=== PATIENT | female | born 1935 | race Caucasian/White ===

== ENCOUNTER 2020-05-23 13:00 | Inpatient (IN) | payer MEDICARE ==
[~2020-05-23] VITALS: Ht 167.6 cm; Wt 70.8 kg
[2020-05-25] MEDS ORDERED: ROSU10TA22 PO (16:37)
[2020-05-25] MEDS ORDERED: DENO60DI SQ (16:37)
[2020-05-25] MEDS ORDERED: AEC81 PO (16:37)
[2020-05-25] MEDS ORDERED: CLON0.3T PO (16:37)
[2020-05-25] MEDS ORDERED: CARB100C9 PO (16:37)
[2020-05-25] MEDS ORDERED: LABE200T5 PO (16:37)
[2020-05-25] MEDS ORDERED: DOCU-133 PO (16:39)
[2020-05-25] MEDS ORDERED: LINA290C PO (16:39)
[2020-05-25] MEDS ORDERED: CELE200C PO (16:39)
[2020-05-25] MEDS ORDERED: SENN8.6T32 PO (16:39)
[2020-05-26] VITALS (27 sets, daily range): BP systolic 119–188; BP diastolic 63–104
[2020-05-26] MEDS ORDERED: VANCOMYCIN HCL 1 GM VIAL ONE (06:58)
[2020-05-26] MEDS ORDERED: THROMBIN-JMI 20000 UNIT KIT TP ONE (06:59)
[2020-05-26 07:00] LABS: BASOPHILS % (AUTO) 0.5 % (0.0-5.0); EOSINOPHILS % (AUTO) 3.7 % (0.0-8.0); HEMATOCRIT 35.3 % (36-48); LYMPHOCYTES % (AUTO) 22.5 % (21.0-51.0); MEAN CORPUSCULAR HEMOGLOBIN 31.8 pg (27.0-33.0); MEAN CORPUSCULAR HGB CONC 34.6 g/dL (32.0-36.0); MEAN CORPUSCULAR VOLUME 91.9 fL (79-99); MONOCYTES % (AUTO) 13.3 % (3.0-13.0); NEUTROPHILS % (AUTO) 59.5 % (40.0-77.0); PLATELET COUNT (AUTO) 136 K/uL (130-400); RED BLOOD CELL COUNT(AUTO) 3.84 MIL/uL (4.00-5.50); RED CELL DISTRIBUTION WIDTH 11.5 % (11.0-15.5); WHITE BLOOD COUNT (AUTO) 4.1 K/uL (4.8-10.8)
[2020-05-26] MEDS ORDERED: LACTATED RINGERS 1000ML 1,000 ML IV ONE (07:08)
[2020-05-26 07:11] LABS: CREATININE 0.8 mg/dL (0.5-1.5); POTASSIUM 4.2 mmol/L (3.5-5.1)
[2020-05-26 07:16] LABS: INR 0.95 (0.85-1.15); PARTIAL THROMBOPLASTIN TIME 23.4 SEC (26.3-35.5); PROTHROMBIN TIME 10.3 SEC (9.6-11.6)
[2020-05-26] MEDS ORDERED: SUCCINYLCHOLINE CHLORIDE 20 MG/ML 10 ML VIAL ONE (07:29)
[2020-05-26] MEDS ORDERED: LIDOCAINE PF 2% 5ML ABBOJECT ONE (07:29)
[2020-05-26] MEDS ORDERED: GLYCOPYRROLATE 1 MG/5 ML SYRINGE ONE (07:31)
[2020-05-26] MEDS ORDERED: NEOSTIGMINE 5MG/5ML SYR IV ONE (07:31)
[2020-05-26] MEDS ORDERED: MIDAZOLAM HCL 1 MG/ML 2ML VIAL ONE (07:31)
[2020-05-26] MEDS ORDERED: DEXAMETHASONE SOD PHOSPHATE 10MG/ML 1ML VIAL ONE ×2 (07:31→08:21)
[2020-05-26] MEDS ORDERED: PROPOFOL 10 MG/ML 20ML VIAL IV ONE (07:31)
[2020-05-26] MEDS ORDERED: ONDANSETRON HCL 4 MG/2 ML VIAL ONE (07:31)
[2020-05-26] MEDS ORDERED: ROCURONIUM 10MG/1ML SYR 10 MG/ML ML ONE (07:31)
[2020-05-26] MEDS ORDERED: FENTANYL CITRATE PF 50 MCG/1 ML 2ML VIAL ONE (07:31)
[2020-05-26] MEDS ORDERED: CEFAZOLIN SODIUM 1 GM VIAL ONE ×2 (08:18)
[2020-05-26] MEDS ORDERED: EPHEDRINE SULFATE 50 MG/ML AMPULE ONE (08:27)
[2020-05-26] MEDS ORDERED: HETASTARCH IN 0.9 % NACL 500 ML IV ONE (08:42)
[2020-05-26] MEDS ORDERED: PHENYLEPHRINE HCL 10 MG/ML 1ML VIAL IV ONE (08:43)
[2020-05-26] MEDS ORDERED: KETOROLAC TROMETHAMINE 30MG/ML ONE (09:46)
[2020-05-26] MEDS ORDERED: MEPERIDINE-PF 25 MG/ML SYG ONE ×5 (10:01→11:43)
[2020-05-26] MEDS ORDERED: HYDRALAZINE HCL 20 MG/ML VIAL ONE (10:33)
[2020-05-26] MEDS ORDERED: HYDROMORPHONE 1 MG/1 ML AMP ONE ×2 (11:25→14:38)
[2020-05-26] MEDS ORDERED: KETOROLAC TROMETHAMINE 15MG/ML ONE (13:38)
[2020-05-26] MEDS ORDERED: KETOROLAC TROMETHAMINE 15MG/ML IV SCH (13:53)
[2020-05-26] MEDS ORDERED: ACETAMINOPHEN-CODEINE 300/30MG TAB PO PRN ×2 (14:00)
[2020-05-26] MEDS ORDERED: TRIMETHOBENZAMIDE HCL 100MG/1ML VIAL IM PRN (14:00)
[2020-05-26] MEDS ORDERED: MEPERIDINE-PF 75 MG/ML SYG IM PRN (14:18)
[2020-05-26] MEDS: LACTATED RINGERS 1000ML 1,000 ML IV SCH (14:48)
[2020-05-26] MEDS ORDERED: HYDROMORPHONE HCL 2 MG/ML VIAL IVP SCH (14:55)
[2020-05-26] MEDS ORDERED: MEPERIDINE-PF 50 MG/ML SYG IVP PRN (15:00)
[2020-05-26] MEDS ORDERED: KETOROLAC TROMETHAMINE 30MG/ML IV SCH (15:00)
[2020-05-26] MEDS: MEPERIDINE-PF 25 MG/ML SYG IVP PRN ×2 (15:12→19:43)
[2020-05-26] MEDS ORDERED: PHARMACY COMMUNICATION MISC SCH (15:30)
--- NOTE | 2020-05-26 15:36 | NUR ---
POST OP PAIN. AT BEDSIDE WITH RN, DEMETRIUS CUMMINGS. PT IN PAIN. MEDS GIVEN ORDERED BY DR. CASTANO PAIN CONTINUED. CRYING, LOUDLY POST ADMIN OF DILAUDID PT DID NOT WANT DEMEROL,. STATES MAKES HER SICK; ADVISED WAS GIVEN DEMEROL IN PACU STATES I THOUGHT THAT WAS DILAUDID CALL TO CUMMINS ORDERS RECD, DEMEROL 50 IV NOW AND Q 4 PRN, TORODOL 30 IV NOW AND TRANSCRIBED BY ROLANDO MARCUS. GIVEN BY ZOILA, PATIENT REPOSITIONED, WITH SOME RELIEF MED EFFECT VISIBLE W RELAXATION AND DECREASE IN [place]. SPOEK TO SPOUSE-FOR CM ASSESSMENT, LW SPOUES, INPD OF ADLS, USES A AKER, BSC; DOES NOT DRIVE, HOME SAFE AND ACCESSIBLE, DCP HOME. SPOUSE STATES PAIN SUDDENA DN UNRELENTING PRIOR TO SURGERY WITHOUT KNOWN PRECIPATING INJURY OR EVEN. STATES IS HOPEFUL SURGEYR WILL HELP
--- NOTE | 2020-05-26 15:44 | NUR ---
TEXT FROM DR. 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
[2020-05-26] MEDS ORDERED: DEXAMETHASONE IV SCH (15:45)
[2020-05-26] MEDS ORDERED: SODIUM CHLORIDE 0.9% IV SCH (15:45)
[2020-05-26] MEDS ORDERED: CELECOXIB 200 MG CAP PO PRN (16:00)
[2020-05-26] MEDS ORDERED: LORAZEPAM 2 MG/ML 1 ML VIAL ONE (18:19)
[2020-05-26] MEDS ORDERED: LORAZEPAM 2 MG/ML 1 ML VIAL IVP PRN (18:30)
--- NOTE | 2020-05-26 19:35 | NUR ---
PER TELEMETRY, UNSUSTAINED EPISODES OF SVT 140'S-150'S. PATIENT STILL REPORTS PAIN, WILL CONTINUE TO ATTEMPT TO MANAGE PAIN THROUGHOUT SHIFT. WILL CONTINUE TO MONITOR.
[2020-05-26] MEDS: DOCUSATE SODIUM 100 MG CAP PO SCH (19:40)
[2020-05-26] MEDS: CARBAMAZEPINE 200 MG TABLET PO SCH (19:40)
[2020-05-26] MEDS: LABETALOL HCL 200 MG TABLET PO SCH (19:41)
--- NOTE | 2020-05-26 19:50 | NUR ---
PT REMAINED IN PAIN THROUGHOUT A.M SHIFT. UPON ARRIVAL TO MED-SURG UNIT PT VITALS WERE STABLE. LATER INTO SHIFT PT BP BEGAN TO INCREASE PAIN BEGAN TO INCREASE. PT IS VERY ANXIOUS. CHARGE NURSE ROLANDO, DR CASTANO, DR CUMMINS, AND GARRET TRAYLOR MADE AWARE OF PT STATUS. PT WAS AT BEDSIDE. MEDICATIONS FOR PAIN ADMINISTERED PER MD ORDERS,..SEE EMAR FOR DETAILS. PT HAD SHORT MOMENTS OF REST. PT REMAINED IN BED, SOFT COLLAR PLACED ON PT NECK ORDERED BY DR CUMMINS. PT IN BED SIDE RAILS UP X3 WITH CALL LIGHT IN REACH. PT WILL CONTINUE TO BE MONITORED.
[2020-05-26] MEDS ORDERED: CLONIDINE HCL 0.2 MG TABLET PO ONE (19:57)
[2020-05-26] MEDS ORDERED: CLONIDINE HCL 0.1 MG TABLET ONE (19:57)
[2020-05-26] MEDS: CLONIDINE HCL 0.3 MG TABLET PO SCH (20:00)
[2020-05-26] MEDS ORDERED: ATORVASTATIN CALCIUM 20 MG TABLET PO SCH (21:00)
[2020-05-26] MEDS ORDERED: NON-FORMULARY MEDICATION 1 EACH (Rosuvastatin Calcium (Crestor) 10 MG) PO SCH (21:00)
[2020-05-26] MEDS ORDERED: CARBAMAZEPINE 100 MG PO SCH (21:00)
--- NOTE | 2020-05-26 21:10 | NUR ---
CALLED JULIO C DHILLON N.P. TO INFORM- PER TELEMETRY, PATIENT CONTINUES WITH INTERMITTENT EPISODES OF SVT 140'S-150'S, NEW ORDERS GIVEN. WILL CONTINUE TO MONITOR.
[2020-05-26 21:22] LABS: BASOPHILS % (AUTO) 0.2 % (0.0-5.0); HEMATOCRIT 37.8 % (36-48); MEAN CORPUSCULAR HEMOGLOBIN 32.4 pg (27.0-33.0); MEAN CORPUSCULAR HGB CONC 35.2 g/dL (32.0-36.0); MEAN CORPUSCULAR VOLUME 92.2 fL (79-99); MONOCYTES % (AUTO) 3.5 % (3.0-13.0); NEUTROPHILS % (AUTO) 92.7 % (40.0-77.0); PLATELET COUNT (AUTO) 143 K/uL (130-400); RED CELL DISTRIBUTION WIDTH 11.5 % (11.0-15.5); WHITE BLOOD COUNT (AUTO) 10.7 K/uL (4.8-10.8)
[2020-05-26 21:41] LABS: CARBON DIOXIDE 26 mmol/L (21-32); CHLORIDE 101 mmol/L (101-111); CREATININE 0.8 mg/dL (0.5-1.5); GLOMERULAR FILTR. RATE CALC 73 mL/min (>60); GLUCOSE,RANDOM 145 mg/dL (70-105); POTASSIUM 4.1 mmol/L (3.5-5.1); SODIUM SERUM 137 mmol/L (136-145); UREA NITROGEN, BLOOD 16 mg/dL (7-18)
[2020-05-26 21:53] LABS: ALANINE AMINOTRANSFERASE 24 U/L (12-78); ALBUMIN 3.4 g/dL (3.5-5.0); ASPARTATE AMINOTRANSFERASE 25 U/L (10-37); BILIRUBIN,TOTAL 0.5 mg/dL (0.2-1.0); CREATINE KINASE, TOTAL 148 U/L (21-232); MYOGLOBIN 216 ng/mL (10-92); TOTAL PROTEIN, SERUM 6.1 g/dL (6.0-8.3); TROPONIN I < 0.04 ng/mL (0.00-0.06)
[2020-05-26] MEDS ORDERED: MAGNESIUM 2GM PREMIX 50ML 50 ML IV SCH (22:00)
[2020-05-26 22:23] LABS: HEMOGLOBIN A1C 5.9 % (4.0-6.0)
[2020-05-26] MEDS ORDERED: NON-FORMULARY MEDICATION 1 EACH (Denosumab (Prolia) 60 MG) SQ SCH (23:00)
[2020-05-26] MEDS ORDERED: MAGNESIUM 2GM PREMIX 50ML 50 ML IV ONE (23:21)
[2020-05-26] MEDS: KETOROLAC TROMETHAMINE 15MG/ML IV PRN (23:29)
[2020-05-27] VITALS: BP 189/102
[2020-05-27] MEDS ORDERED: CLONIDINE HCL 0.1 MG TABLET ONE (00:23)
[2020-05-27] MEDS ORDERED: CLONIDINE HCL 0.1 MG TABLET PO SCH (00:30)
[2020-05-27] MEDS: MEPERIDINE-PF 25 MG/ML SYG IVP PRN (00:32)
[2020-05-27 03:56] VITALS: BP 126/58
[2020-05-27] MEDS: LACTATED RINGERS 1000ML 1,000 ML IV SCH (04:18)
[2020-05-27 06:19] LABS: BASOPHILS % (AUTO) 0.1 % (0.0-5.0); LYMPHOCYTES % (AUTO) 6.3 % (21.0-51.0); MEAN CORPUSCULAR HEMOGLOBIN 31.9 pg (27.0-33.0); MEAN CORPUSCULAR VOLUME 93.8 fL (79-99); MONOCYTES % (AUTO) 10.6 % (3.0-13.0); NEUTROPHILS % (AUTO) 82.6 % (40.0-77.0); PLATELET COUNT (AUTO) 141 K/uL (130-400); RED BLOOD CELL COUNT(AUTO) 3.73 MIL/uL (4.00-5.50); RED CELL DISTRIBUTION WIDTH 11.6 % (11.0-15.5); WHITE BLOOD COUNT (AUTO) 10.6 K/uL (4.8-10.8)
--- NOTE | 2020-05-27 06:20 | NUR ---
ECHO SPOKE TO GARRET BUNCH, REGARDING ECHO ORDERED LAST NIGHT. IT WILL BE DONE TODAY.
--- NOTE | 2020-05-27 06:50 | NUR ---
2-D ECHO EVERTON JAMES NOTIFIED OF ORDER
[2020-05-27 06:52] LABS: BILIRUBIN,TOTAL 0.5 mg/dL (0.2-1.0); CREATININE 0.8 mg/dL (0.5-1.5); MAGNESIUM 2.8 mg/dL (1.80-2.40); POTASSIUM 4.2 mmol/L (3.5-5.1); TOTAL PROTEIN, SERUM 5.7 g/dL (6.0-8.3); TROPONIN I 0.05 ng/mL (0.00-0.06)
[2020-05-27] MEDS: KETOROLAC TROMETHAMINE 15MG/ML IV PRN (06:56)
--- NOTE | 2020-05-27 07:45 | NUR ---
PATIENT SLEPT FOR COUPLE OF HOURS AFTER ATIVAN ADMINISTRATION AT 0145 AND PAIN MEDICATIONS PRN. STATES FEELS BETTER THIS AM, BUT STILL REQUIRES PAIN CONTROL. CURRENTLY IN AFIB CVR 90'S. WILL CONTINUE TO MONITOR.
[2020-05-27 08:33] VITALS: BP 108/60
[2020-05-27] MEDS ORDERED: LINACLOTIDE 290 MCG PO SCH (09:00)
[2020-05-27] MEDS ORDERED: NON-FORMULARY MEDICATION 1 EACH (Linaclotide (Linzess) 290 MCG) PO SCH (09:00)
[2020-05-27] MEDS ORDERED: SENNOSIDES 8.6 MG TABLET PO SCH (09:00)
[2020-05-27] MEDS: CLONIDINE HCL 0.3 MG TABLET PO SCH (09:10)
[2020-05-27] MEDS: LABETALOL HCL 200 MG TABLET PO SCH (09:10)
[2020-05-27] MEDS: DOCUSATE SODIUM 100 MG CAP PO SCH (09:10)
[2020-05-27] MEDS: CARBAMAZEPINE 200 MG TABLET PO SCH (09:12)
--- NOTE | 2020-05-27 10:21 | NUR ---
DR. CUMMINS IN TO SEE PT. LEFT DISCHARGE ORDERS, [facility] TO FOLLOW.
--- NOTE | 2020-05-27 10:45 | NUR ---
SPOUSE NOTIFIED OF DISCHARGE AND WE WILL CALL HIM WHEN H/H ARRANGEMENTS COMPLETE.
--- NOTE | 2020-05-27 11:00 | NUR ---
INITIAL: Met with pt this morning to discuss dcp. Pt lives w spouse, she was previously independent w ambulation and ADLs. She does not own any DME or receive services. Informed pt that was recommending [facility]. Pt in agreement. ALINA/PC consent obtained for [facility]. Addendum: 05/28/20 at 1715 by NANETTE CARRINGTON CM Amended: Links added.
--- NOTE | 2020-05-27 12:13 | NUR ---
[facility] Spoke w pt this morning regarding Md recommendations for [facility] services upon discharge. ALINA/PC consent obtained. Referral faxed to [facility] [phone] Call placed to [facility] @ [phone], spoke to intake rep. stats will attempt to contact oncall nurse and have them call CM back.
[2020-05-27 12:59] VITALS: BP 105/59
--- NOTE | 2020-05-27 13:15 | NUR ---
[facility] Received call back from [place] w [facility]. He mentions that they do not provide nursing or therapy services. He mentions that they are provider services. CM left message w Dr. Lassiter to clarify [facility] orders. Pending callback.
[2020-05-27] MEDS ORDERED: DENOSUMAB 60 MG SQ PRN (14:15)
--- NOTE | 2020-05-27 15:17 | NUR ---
clarification: Receive message from Dr. Lassiter to set up pt for Home Health services. Discussed w pt, pt gave consent for [facility]. Referral sent to [facility]. Spoke w Geri w [facility], states they can accept pt for services. Primary nurse informed.
[2020-05-27] MEDS ORDERED: ACET1TAB25 PO ×2 (15:51→15:52)
--- NOTE | 2020-05-27 15:55 | NUR ---
PAGED DR CUMMINS TO CLARIFY, DC ORDERS IN CHART, BUT NO NEW RX. PT CONCERNED ABOUT LACK OF PAIN MEDICATIONS FOR HOME. REC'D CALL BACK FROM DR CUMMINS; ORDERS GIVEN FOR TYLENOL #3, 1 TAB PO Q 8 HOURS. TELEPHONE ORDER READ BACK, NURSE ATTEMPTED TO CLARIFY IF PRN OR SCHEDULED, REPLIED AGAIN "1 TABLET PO Q 8 HOURS.", ALSO STATED TO DISPENSE 30 TABS.
[2020-05-27] MEDS ORDERED: [UNRECOGNIZED DRUG - CODE] PO (16:04)
--- NOTE | 2020-05-27 17:20 | NUR ---
DISCHARGED NOW. INST. AND RX. GIVEN. REMOVED SALINE LOCK AND HEART MONITOR
[2020-05-27] MEDS ORDERED: ASPIRIN 81 MG EC TAB PO SCH (21:00)
== END 2020-05-27 17:30 | disposition home health service (06) | DRG 473 ==
LOC: OBSVTOIN 05-26 06:04 → DAHIP 05-26 06:04 → 3DH 05-26 12:50 → EDSTATUS 05-26 13:00
PROVIDERS: ADMIT Neuromusculoskeletal Medicine & OMM; ATTEND Neuromusculoskeletal Medicine & OMM
PROC: 0RG20A0 Fusion of 2 or more Cervical Vertebral Joints with Interbody Fusion Device, Anterior Approach, Anterior Column, Open Approach (ICD-10-PCS; 2020-05-26)
PROC: 4A11X4G Monitoring of Peripheral Nervous Electrical Activity, Intraoperative, External Approach (ICD-10-PCS; 2020-05-26)
PROC: 0RB30ZZ Excision of Cervical Vertebral Disc, Open Approach (ICD-10-PCS; principal; 2020-05-26 08:04)
DX: M50.121 Cervical disc disorder at C4-C5 level with radiculopathy (principal); I10 Essential (primary) hypertension; E78.5 Hyperlipidemia, unspecified; G89.29 Other chronic pain; M50.122 Cervical disc disorder at C5-C6 level with radiculopathy; G40.909 Epilepsy, unspecified, not intractable, without status epilepticus; Z88.5 Allergy status to narcotic agent; Z88.8 Allergy status to other drugs, medicaments and biological substances; Z91.048 Other nonmedicinal substance allergy status
CPT/HCPCS: 36415; 71045; 72020; 80048; 80053; 80061; 82550; 83036; 83735; 83874; 84484; 85025; 85610; 85730; 93005; 93306; G0378; J0330; J0360; J0690; J1030; J1100; J1170; J1885; J2001; J2060; J2175; J2250; J2370; J2405; J2704; J2710; J3010; J3370; J3475; J3490; J7120; U0003